=== PATIENT | female | born 1960 | race Caucasian/White ===

== ENCOUNTER 2016-06-30 20:13 | Emergency (ER) | payer OTHER, BC ==
[~2016-06-30] VITALS: Ht 167.6 cm; Wt 77.3 kg
[2016-06-30 20:16] VITALS: TEMP 98.1
[2016-06-30 21:57] VITALS: BP 135/78; PULSE 88
== END 2016-06-30 21:58 | disposition home or self-care (01) ==
LOC: COL.ER 20:13
DX: S09.90XA Unspecified injury of head, initial encounter (principal); S16.1XXA Strain of muscle, fascia and tendon at neck level, initial encounter; E04.1 Nontoxic single thyroid nodule; M79.621 Pain in right upper arm; M79.631 Pain in right forearm; M25.511 Pain in right shoulder; M54.5 Low back pain; V43.52XA Car driver injured in collision with other type car in traffic accident, initial encounter; Y92.410 Unspecified street and highway as the place of occurrence of the external cause